=== PATIENT | female | born 1965 | race Caucasian/White ===

== ENCOUNTER 2025-01-06 21:27 | Observation (INO) | payer BC, SELFPAY ==
[2025-01-06 21:28] VITALS: BMI 31.1
[2025-01-06 21:37] VITALS: BP 157/96; PULSE 58; RESP 20; TEMP 36.4; O2SAT 100
--- NOTE | 2025-01-06 21:43 | EKG_ITS ---
[facility] Test Date: 2025-01-06 Pat Name: ESME HICKS Department: Room: - Gender: Female Medical Assistant Secretary: : 1965 Requested By: Jasson Lambert Order Number: [id number] Reading MD: Jasson Lambert Measurements Intervals Burt Rate: 53 P: 46 WV: 166 QRS: 57 QRSD: 96 T: 51 QT: 430 QTc: 404 Interpretive Statements SINUS BRADYCARDIA LOW QRS VOLTAGE IN PRECORDIAL LEADS [QRS DEFLECTION < 1.0 mV IN CHEST LEADS] No previous ECG available for comparison /store/S0/[id number]/ecg/[id number].pdf
[2025-01-06] MEDS: SODIUM CHLORIDE 0.9% 1000 ML 1,000 ML 999 ML IV (21:59)
[2025-01-06 22:14] LABS: Basophils # (Auto) 0.0 Thou/mm3 (0.0-0.2); Basophils % (Auto) 1 % (0-2.5); Eosinophils # (Auto) 0.0 Thou/mm3 (0.0-0.5); Eosinophils % (Auto) 0 % (0-10); Hematocrit 33.5 % (36.0-46.0); Hemoglobin 11.5 g/dL (12.0-16.0); Immature Granulocytes Auto 0.01 Thou/mm3 (0.00-0.00); Lymphocytes # (Auto) 1.2 Thou/mm3 (1.0-4.8); Lymphocytes % (Auto) 17 % (10-50); Mean Corpuscular HGB Conc 34.3 g/dl (31.0-37.0); Mean Corpuscular Hemoglobin 29.6 pg (25.0-35.0); Mean Corpuscular Volume 86 fL (80-100); Monocytes # (Auto) 0.2 Thou/mm3 (0.0-0.8); Monocytes % (Auto) 3 % (0-12); Neutrophils # (Auto) 5.5 Thou/mm3 (1.8-7.7); Neutrophils % (Auto) 79 % (37-80); Nucleated Red Blood Cell # 0.00 Thou/mm3 (0.00-0.00); Nucleated Red Blood Cell % 0 /100 WBC (0); Platelet Count 248 Thou/mm3 (140-440); RDW Standard Deviation 41.2 fL (36.4-46.3); Red Blood Count 3.89 Miln/mm3 (4.00-5.20); White Blood Count 7.0 Thou/mm3 (3.6-11.0)
[2025-01-06 22:34] LABS: Alanine Aminotransferase 7 U/L (10-49); Albumin, Serum 4.1 gm/dL (3.5-5.0); Albumin/Globulin Ratio 1.5 (1.2-2.2); Alkaline Phosphatase 135 U/L (46-116); Anion Gap 7 (7-16); Aspartate Amino Transferase 16 U/L (0-34); BUN/Creatinine Ratio 11 Ratio (12-20); Bilirubin,Total 0.4 mg/dL (0.3-1.2); Blood Urea Nitrogen 11 mg/dL (9-23); Calcium 9.7 mg/dL (8.3-10.6); Calcium (Corrected) 9.7 mg/dL (8.5-10.1); Carbon Dioxide 25.2 mMol/L (20.0-31.0); Chloride 113 mMol/L (98-107); Creatinine (Component) 1.0 mg/dL (0.6-1.3); Estimated Creatinine Clearance 74.0 mL/min (>60); Globulin 2.7 gm/dL (2.3-3.5); Glucose 122 mg/dL (74-106); Magnesium 2.0 mg/dL (1.6-2.6); Osmolality,Calculated 289 (275-295); Potassium 4.6 mMol/L (3.4-5.1); Sodium 145 mMol/L (136-145); Total Protein 6.8 gm/dL (5.7-8.2); Troponin I < 0.020 ng/mL (0.0-0.045); eGFR > 60 See Note
--- NOTE | 2025-01-06 23:06 | PD.EDADULT ---
ED General RME/HPI General Chief complaint: Dizziness Stated complaint: DIZZY AND NAUSEA Time Seen by Provider: 01/06/25 21:31 Arrival date/time: 01/06/25 21:27 RME / HPI RME / HPI narrative: See MDM Related Data Home Medications ?Medication ?Instructions ?Recorded ?Confirmed aripiprazole 2 mg tablet 3 mg PO HS 01/07/25 01/07/25 aspirin 81 mg capsule 81 mg PO QDAY 01/07/25 01/07/25 baclofen 10 mg tablet 10 mg PO TID 01/07/25 01/07/25 clonazepam 0.5 mg tablet 0.5 mg PO HS 01/07/25 01/07/25 desipramine 25 mg tablet 100 mg PO HS 01/07/25 01/07/25 famotidine 40 mg tablet 40 mg PO DAILY 01/07/25 01/07/25 lansoprazole 30 mg capsule,delayed 30 mg PO BID 01/07/25 01/07/25 release liothyronine 5 mcg tablet 30 mcg PO QAM PRN thyroid 01/07/25 01/07/25 mirtazapine 45 mg tablet 45 mg PO HS 01/07/25 01/07/25 prazosin 2 mg capsule 3 mg PO HS 01/07/25 01/07/25 Allergies Allergy/AdvReac Type Severity Reaction Status Date / Time codeine Allergy Verified 01/06/25 21:30 latex Allergy Verified 01/06/25 21:30 Penicillins Allergy Verified 01/06/25 21:30 Review of Systems Review of Systems Systems Reviewed: All systems reviewed, normal except as documented Course Quality Measures none Orders Category Date Time Status Bedside Blood Glucose NOW Care 01/07/25 04:10 Active Bedside COVID-19 Antigen Test NOW Care 01/06/25 21:43 Active Bedside Influenza A&B Antigen Test NOW Care 01/06/25 21:44 Completed COVID-19 Screening Questionnaire NOW Care 01/07/25 05:50 Active Car Jockey NOW Care 01/07/25 04:10 Active Continuous Pulse Oximetry NOW Care 01/07/25 04:10 Completed Decision to Admit X1 Care 01/07/25 05:50 Completed EKG (ED ONLY) *Do not use* NOW Care 01/06/25 21:43 Completed EKG (ED ONLY) *Do not use* NOW Care 01/07/25 04:10 Completed In and Out Catheter NEEDED Care 01/07/25 04:10 Active Insert IV NOW Care 01/07/25 04:10 Active MRI Screening NOW Care 01/07/25 04:47 Active NIH Stroke Scale now Care 01/07/25 04:10 Active Nurse Swallow Screen x1 Care 01/07/25 04:10 Active Consult to Neurology / Tele-Neurology Routine Cons 01/07/25 04:[address] angio stroke protocol Stat Exams 01/07/25 04:[address] chest abdomen pelvis wo Stat Exams 01/07/25 02:[address] head/brain wo con Stat Exams 01/07/25 02:01 Completed EKG (ED Only) Stat Exams 01/06/25 21:43 Draft EKG (ED Only) Stat Exams 01/07/25 04:10 Ordered CBC Stat Lab 01/06/25 21:12 Completed CBC Stat Lab 01/07/25 04:21 Completed CMP [Comprehensive Metabolic Panel] Stat Lab 01/06/25 21:12 Completed Comprehensive Metabolic Panel Stat Lab 01/07/25 04:21 Completed Drug Screen,Urine Stat Lab 01/07/25 01:35 Completed HCG Titer if Positive Stat Lab 01/07/25 04:21 Completed Magnesium Stat Lab 01/06/25 21:12 Completed Magnesium Stat Lab 01/07/25 04:21 Completed Partial Thromboplastin Time Stat Lab 01/07/25 04:21 Completed Prothrombin Time with INR Stat Lab 01/07/25 04:21 Completed Troponin I Stat Lab 01/06/25 21:12 Completed Troponin I Stat Lab 01/07/25 04:21 Completed UA [Urinalysis] Stat Lab 01/07/25 01:35 Completed Clopidogrel [Plavix] Med 01/07/25 04:47 Discontinued 300 mg PO X1 ONE Ondansetron Inj [Zofran Inj] Med 01/07/25 01:23 Active 4 mg IVP Q6HR PRN Sodium Chloride 0.9% 1000 ml [Ns] 1,000 ml Med 01/06/25 21:44 Discontinued IV 999 mls/hr Oxygen Delivery NOW RT 01/07/25 04:10 Active Vital Signs Vital signs: Vital Signs Temperature 97.5 F 01/06/25 21:37 Pulse Rate 58 L 01/06/25 21:37 Respiratory Rate 20 01/06/25 21:37 Blood Pressure 157/96 H 01/06/25 21:37 Pulse Oximetry (%) 100 01/06/25 21:37 Oxygen Delivery Method Room Air 01/06/25 21:37 Discharge Plan Plan Patient Disposition: Admit Acute Care w/in Hospital Problem List Clinical Impression: Cerebrovascular accident MDM Narrative MDM hospital course: 59 y/o F with pMHx of hypothyroidism, esophageal cancer (2007), GERD, major depressive disorder, anxiety, 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 She endorses that there were multiple instances where she felt like she was in a pass out she is never had the symptoms before. She states she drinks at least a gallon of water every day. She also endorses some palpitations just before dry heaving. 2313: Labs ordered, CT abdomen pelvis ordered, CT head ordered, IV fluids administered 0409: Stroke alert called. CT head shows Decreased cortical differentiation in the right occipital lobe, possibly artifactual. If acute infarct in the territory of the right ICT SECURITY SPECIALIST is clinically suspected, correlation with MRI and/or CTA is recommended, No evidence of intracranial hemorrhage, mass effect or midline shift, Mild volume loss. CTA head/neck came back negative Hospitalist team to admit Clinical Information Provided by patient Medical Records Reviewed [facility] Chronic Illness/Social Conditions which may negatively complicate care or outcome(s)-explain: None or not applicable Lab Interpretation Labs: interpreted by ct Lab(s) interpretation(s): normocytic anemia, cmp unremarkable, UA and UTox negative Imaging Radiology reports / interpretation(s): see radiology report Medication Administration(s) Medication Administration History Acetaminophen (Acetaminophen 325 Mg Tablet) 650 mg PO Q6H PRN PRN Reason: Fever >100.4 Stop: 02/06/25 07:27 Acetaminophen (Acetaminophen 325 Mg Tablet) 650 mg PO Q6H PRN PRN Reason: PAIN SCALE 1-3 (mild Stop: 02/06/25 07:32 Aripiprazole (Aripiprazole 5 Mg Tablet) 2.5 mg PO QDAY [facility] Stop: 02/06/25 13:29 Last Admin: 01/07/25 15:20 Dose: 2.5 mg Documented By: ER Aspirin (Aspirin Ec 81 Mg Tabec) 81 mg PO QDAY [facility] Stop: 02/06/25 08:59 Last Admin: 01/07/25 13:05 Dose: 81 mg Documented By: ER Bupropion HCl (Bupropion Hcl Xl 150 Mg Tabcr) 300 mg PO QDAY [facility] Stop: 02/06/25 08:59 Last Admin: 01/07/25 15:15 Dose: 300 mg Documented By: ER Clonazepam (Clonazepam 0.5 Mg Tablet) 0.25 mg PO QDAY [facility] Stop: 01/12/25 08:59 Last Admin: 01/07/25 13:12 Dose: 0.25 mg Documented By: ER Clopidogrel Bisulfate (Clopidogrel Bisulfate 75 Mg Tablet) 75 mg PO QDAY [facility] Stop: 02/06/25 08:59 Last Admin: 01/07/25 13:05 Dose: 75 mg Documented By: ER Famotidine (Famotidine 20 Mg Tablet) 40 mg PO DAILY [facility] Stop: 02/07/25 08:59 Heparin Sodium (Porcine) (Heparin Sod Inj 5000 Unit/Ml Vial) 5,000 unit SC Q8HR [facility] Stop: 01/21/25 07:44 Last Admin: 01/07/25 15:16 Dose: Not Given Documented By: ER Non-Admin Reason: Duplicate Medication on eMAR Admin: 01/07/25 13:05 Dose: 5,000 unit Documented By: ER Co-signed By: AIMEE Hydralazine HCl (Hydralazine Inj 20 Mg/Ml Vial) 10 mg IVP Q6HR PRN PRN Reason: Give if SBP >220 and DBP>120 Stop: 02/06/25 07:38 Lactated Ringer's (Lactated Ringers) 1,000 mls @ 75 mls/hr IV .[id number] [facility] Stop: 02/06/25 07:29 Last Admin: 01/07/25 13:05 Dose: 75 mls/hr Documented By: ER Liothyronine Sodium (Liothyronine Sod 5 Mcg Tablet) 30 mcg PO QDAY [facility] Stop: 02/06/25 13:14 Last Admin: 01/07/25 15:15 Dose: 30 mcg Documented By: ER Meclizine HCl (Meclizine Hcl 25 Mg Tablet) 25 mg PO TID PRN PRN Reason: DIZZINESS Stop: 02/06/25 07:38 Ondansetron HCl (Ondansetron Inj 2 Mg/Ml Inj 2 Ml) 4 mg IVP Q6HR PRN; Protocol PRN Reason: NAUSEA OR VOMITING Stop: 02/06/25 01:22 Last Admin: 01/07/25 01:44 Dose: 4 mg Documented By: VIVEK Pantoprazole Sodium (Pantoprazole 40 Mg Tablet) 40 mg PO Q12HR JAYLEN Stop: 02/06/25 08:59 Last Admin: 01/07/25 13:05 Dose: 40 mg Documented By: ER Sennosides (Senna Tablet) 1 tab PO QDAY PRN; Protocol PRN Reason: constipation Stop: 02/06/25 07:32 Discontinued Medications Aripiprazole (Aripiprazole 2 Mg Tablet (Non-Form)) 3 mg PO QDAY JAYLEN Stop: 02/06/25 08:59 Aripiprazole (Aripiprazole 5 Mg Tablet) 2.5 mg PO QDAY JAYLEN Stop: 02/06/25 08:59 Last Admin: 01/07/25 14:33 Dose: Not Given Documented By: ER Non-Admin Reason: Discontinued Clopidogrel Bisulfate (Clopidogrel Bisulfate 75 Mg Tablet) 300 mg PO X1 ONE Stop: 01/07/25 04:48 Last Admin: 01/07/25 05:14 Dose: 300 mg Documented By: VIVEK Famotidine (Famotidine 20 Mg Tablet) 20 mg PO DAILY JAYLEN Stop: 02/06/25 08:59 Last Admin: 01/07/25 13:11 Dose: 20 mg Documented By: ER Sodium Chloride (Ns) 1,000 mls @ 999 mls/hr IV .Q1H1M ONE Stop: 01/06/25 22:44 Last Infusion: 01/06/25 23:06 Dose: Infused Documented By: Admin: 01/06/25 21:59 Dose: 999 mls/hr Documented By: VIVEK Liothyronine Sodium (Liothyronine Sod 5 Mcg Tablet) 2.5 mcg PO QDAY JAYLEN Stop: 02/06/25 08:59 Last Admin: 01/07/25 13:16 Dose: Not Given Documented By: ER Non-Admin Reason: Discontinued see above Diagnosis Differential diagnosis: Stroke, vertigo, BPPH Dispositon Disposition: Admit
[2025-01-06 23:09] VITALS: BP 133/82; PULSE 61; RESP 18; TEMP 36.6; O2SAT 99
[2025-01-07] VITALS (10 sets, daily range): BP systolic 121–153; BP diastolic 83–99; PULSE 58–81; RESP 17–98; TEMP 36.1–36.9; O2SAT 96–100
--- NOTE | 2025-01-07 | XR_ITS ---
Examinations: MRI Brain without intravenous contrast. MRI brain with intravenous contrast MRA brain with intravenous contrast. MRA brain without intravenous contrast MRA neck with intravenous contrast Date and time of exam: Thousand 25, 0842 hrs. Indications: Onset dizziness nausea vomiting diaphoresis today Technique: Multiple axial and sagittal images of the brain have been obtained Siemens high-resolution 1.5 Umu short bore scanner is utilized. Sagittal sections, T1-weighted, TR 500, TE 14 Axial sections proton density and T2-weighted, TR 3,000, TE 34, TR 3,000, TE 91 Inversion recovery axial images, TR 9,260, TE 111, TI 2,500 Diffusion weighted images, axial sections, TR 4,800, TE 128, B value 1,000 Axial sections, ADC map, TR 4,800, TE 128. Contrast images have been obtained post intravenous 19 cc Gadolinium. T1-weighted axial and coronal images post contrast have been obtained. Angiographic images of neck and brain are obtained pre and post contrast. 3-D post processing performed, including brain, extracranial neck arterial maximum intensity projections Findings: Sellaturcica is not enlarged. The optic chiasm and infundibular stalk are not remarkable. Prepontine and interpeduncular cisterns are not enlarged. No localized enlargement of the medulla or janina. Fourth ventricle and cerebellar tonsils normal in position. Subacute hemorrhage is not seen. Fourth ventricle is midline. Mass in the cerebellopontine angle region is not evident. 7th and 8th nerve complexes exhibits symmetry. Globes are symmetrical with no retro-orbital mass. Increased white matter signal moderate Diffusion-weighted images demonstrateno focus of restricted diffusion. Mass-effect upon the ventricular system is not identified. Abnormal contrast enhancement is not seen. MRA brain carotid images no carotid stenoses, no cerebral large vessel arterial occlusions Impression: Negative for acute hemorrhage, mass effect or midline shift No acute infarct Moderate chronic microvascular white matter change No carotid stenoses No cerebral large vessel arterial occlusions
[2025-01-07] MEDS: ONDANSETRON INJ 2 MG/ML INJ 2 ML 4 MG IVP ×2 (01:44→20:22)
[2025-01-07 01:57] LABS: Collection Type, Urine Clean Catch
[2025-01-07 02:01] LABS: Bilirubin,Urine Negative (Negative); Blood,Urine Negative (Negative); Clarity,Urine Turbid (Clear/Hazy); Color,Urine Yellow (Lt Yel-Yel); Glucose, Urine Negative (Negative); Ketones,Urine Negative (Negative); Leukocyte Esterase,Urine Negative (Negative); Nitrite,Urine Negative (Negative); PH,Urine 5.5 (5.0-7.0); Protein,Urine Trace (Neg - Trace); RBC,Urine 2 /hpf (0-3); Specific Gravity,Urine 1.021 (1.001-1.035); Squamous Epithelial Cell,Urine 14 /hpf (0-5); Urobilinogen,Urine Negative mg/dL (0.0-1.0); WBC,Urine 3 /hpf (0-5)
--- NOTE | 2025-01-07 02:01 | XR_ITS ---
Examination: CT chest, without intravenous contrast. CT abdomen, without intravenous contrast. CT pelvis, without intravenous contrast. 2-D sagittal and coronal reconstructions. 3-D reconstructions. Date and time of exam:January 07, 2025, 0247 hours INDICATIONS: Dizziness shortness of breath chest and abdominal pain today CTDI vol (mgy) 16 DLP (MGycm)1174 Technique: Multiple CT images, 3.0 mm slice thickness, obtained chest, abdomen, pelvis, with the high-resolution 64 slice scanner.. Sagittal and coronal 2-D reconstructions are obtained. 3-D reconstructions Low dose protocols were performed. One or more of the following dose reduction techniques were used; automated exposure control, adjustment of the mA and/or KV according to patient size, use of iterative reconstruction technique. Findings: No thoracic aortic aneurysmal dilatation Pulmonary artery segments are not enlarged. No mediastinal lymphadenopathy. Minor atelectasis in the right lower lobe, no pneumonia Gastric sutures No focal liver or splenic lesion Fatty replacement throughout the liver Absent gallbladder No renal or ureteral calculi, no hydronephrosis Aorta normal size No bowel obstruction Normal appendix Atrophic uterus Urinary bladder is intact Advanced disc narrowing L4-L5 IMPRESSION: No acute process in the chest abdomen or pelvis
--- NOTE | 2025-01-07 02:01 | XR_ITS ---
Examination: CT brain head without contrast. 2-D sagittal coronal reconstructions Date and time of exam:January 07, 2025, 0243 hours INDICATIONS: Onset dizziness today CTDI: vol (mGy):48. DLP: (mGycm):1111. Technique: Multiple CT axial sections of the brain have been obtained, 5 mm slice thickness. Contrast has not been administered. 2-D sagittal, coronal reconstructions have been obtained Low dose protocols were performed. One or more of the following dose reduction techniques were used; automated exposure control, adjustment of the mA and/or KV according to patient size, use of iterative reconstruction technique. Findings: Decreased wedge-shaped density in the right occipital lobe, axial image 24 Ventricles are not enlarged No acute hemorrhage Cranial vault intact IMPRESSION: Decreased wedge-shaped density in the right occipital lobe, follow-up brain MRI would best assess for acute ischemic change
[2025-01-07 02:07] LABS: Amphetamine/Methamp Scrn,U Negative (Negative); Barbiturate Screen,Urine Negative (Negative); Benzodiazepines Screen,Urine Negative (Negative); Benzoylecgonine Screen, Ur Negative (Negative); Fentanyl Screen,Urine Negative (Negative); Opiate Screen,Urine Negative (Negative); THC Screen,Urine Negative (Negative)
--- NOTE | 2025-01-07 02:48 | PC.NURSE ---
ERIN MYRICK [phone]
--- NOTE | 2025-01-07 03:42 | PRELIM_ITS ---
CT scan of the head without intravenous contrast (axial sections with sagittal and coronal reformats) January 07, 2025 at 0242 hours Clinical History: Dizziness. Comparison: None. Findings: Decreased cortical differentiation in the right occipital lobe, possibly artifactual. There is no evidence of intracranial hemorrhage, mass effect or midline shift. There is mild volume loss. The calvarium is unremarkable. The mastoid air cells and the visualized paranasal sinuses are clear. Impression: 1. Decreased cortical differentiation in the right occipital lobe, possibly artifactual. If acute infarct in the territory of the right ABSTRACTER is clinically suspected, correlation with MRI and/or CTA is recommended. 2. No evidence of intracranial hemorrhage, mass effect or midline shift. 3. Mild volume loss. Report Electronically Signed By: Edwin Valadez 01/07/2025 3:42:26 AM [EST]
--- NOTE | 2025-01-07 04:10 | XR_ITS ---
Examination: CTA carotids with intravenous contrast CTA brain, head with intravenous contrast. 2-D sagittal, coronal reconstructions. 3-D reconstructions. Exam date and time: January 07, 2025, 0442 hours INDICATIONS: Stroke protocol, onset dizziness altered mental status today CTDI: vol (mGy) 46 DLP: (mGycm) 493 Technique: Multiple CTA axial brain, head carotid images post intravenous contrast injection 95 cc, Isovue-[id number]. 2-D sagittal, coronal reconstructions. 3-D reconstructions, 3-D post processing including vascular maximum intensity projection images. Low dose protocols were performed. One or more of the following dose reduction techniques were used; automated exposure control, adjustment of the mA and/or KV according to patient size, use of iterative reconstruction technique. Findings: No significant common carotid carotid bifurcation or internal carotid artery stenoses. Dominant right vertebral artery with no critical stenoses Intracranial vertebral arteries, basilar artery and posterior cerebral branches fill with no large vessel occlusions Middle cerebral anterior cerebral arteries also demonstrate no large vessel occlusions IMPRESSION: No significant neck arterial stenoses No cerebral large vessel arterial occlusions Consider brain MRI follow up stroke protocol
--- NOTE | 2025-01-07 04:48 | ESCONSULT_ITS ---
Tele Neuro Consultation Consultation Date 01/07/25 Most Recent Vital Signs Last Vital Signs Temp 97.8 F 01/06/25 23:09 Pulse 59 L 01/07/25 04:20 Resp 18 01/07/25 04:20 BP 153/95 H 01/07/25 04:20 Pulse Ox 100 01/07/25 04:20 O2 Del Method Room Air 01/07/25 04:20 Consultation Narrative [facility] Patient Name:???Shaniqua Cosby Date of :???1965 Identification Number:??? Date of Service:???01/07/2025 04:09:33 Diagnosis:?R42 - Dizziness/ Vertigo/ Giddiness Impression: ?Acute onset of dizziness and nausea/vomiting with diaphoresis. Neurological exam is non-localizing at this time, however head CT shows possible mild effacement of mccarthy-white differentiation in the right occipital lobe, unclear whether this represents early ischemia versus artifact. Differential diagnosis includes posterior circulation ischemia, peripheral vertigo, cardiac etiology. She is outside IV thrombolysis treatment time window. ? ?Recommendations: ?- CTA head/neck pending ?- MRI brain with and without contrast (contrast recommended due to remote malignancy history) ?- Permissive HTN pending MRI results ?- Dual antiplatelet therapy as below. As symptoms have been present for several hours, if MRI brain is negative for acute ischemia then the clopidogrel can be stopped and she can continue with aspirin monotherapy. Our recommendations are outlined below. Recommendations: ? Stroke/Telemetry Floor ? Neuro Checks (Q2) ? Bedside Swallow Eval ? DVT Prophylaxis ? IV Fluids, Normal Saline ? Head of Bed 30 Degrees ? Euglycemia and Avoid Hyperthermia (PRN Acetaminophen) ? Bolus with Clopidogrel 300 mg bolus x1 and initiate dual antiplatelet therapy with Aspirin 81 mg daily and Clopidogrel 75 mg daily ? Antihypertensives PRN if Blood pressure is greater than 220/120 or there is a concern for End organ damage/contraindications for permissive HTN. If blood pressure is greater than 220/120 give labetalol PO or IV or Vasotec IV with a goal of 15% reduction in BP during the first 24 hours. Sign Out: ? Discussed with Emergency Department Provider Advanced Imaging: Advanced imaging has been ordered. Results pending. Metrics: Last Known Well: 01/06/2025 19:15:00 Dispatch Time: 01/07/2025 04:09:33 Arrival Time: 01/06/2025 21:27:00 Initial Response Time: 01/07/2025 04:15:03Symptoms: dizziness, nausea. Initial patient interaction: 01/07/2025 04:15:41 NIHSS Assessment Completed: 01/07/2025 04:24:00Patient is not a candidate for Thrombolytic. Thrombolytic Medical Decision: 01/07/2025 04:24:30Patient was not deemed candidate for Thrombolytic because of following reasons: LKW outside 4.[address] Head: I personally reviewed all the CT images that were available to me and it showed: No acute hemorrhage. Possible subtle decrease in mccarthy-white differentiation in the right occipital lobe - early ischemia versus artifact Primary Provider Notified of Diagnostic Impression and Management Plan on: 01/07/2025 04:43:49 History of Present Illness:Patient is a 59 year old Female. Patient was brought by private transportation with symptoms of dizziness, nausea. Patient is a 59 year old woman presenting to the ED yesterday evening due to palpitations followed by acute onset of dizziness, nausea/vomiting, diaphoresis, and feeling as if she was going to pass out at 7:15pm. Her symptoms persisted for more than 2 hours, prompting her to come to the ED. She denies lateralized weakness/numbness, facial droop, language difficulty, vision loss, double vision. She reports mild visual blurring which may be worse on the left; blurring does not improve when she covers either eye. She denies slurred speech, but does feel like her voice is hoarse compared to normal. She denies recent illnesses. Past Medical History: ?There is no history of Hypertension ?There is no history of Diabetes Mellitus ?There is no history of Hyperlipidemia ?There is no history of Atrial Fibrillation ?There is no history of Coronary Artery Disease ?There is no history of Stroke ?There is no history of Seizures ?There is no history of Dementia/MCI Other PMH:? TIA 08/2024 with similar symptoms, esophageal cancer (2007), depression/anxiety, thyroid disease, GERD Medications: No Anticoagulant use? Antiplatelet use:?Yes?aspirin 81mg daily Reviewed EMR for current medications Other Medications Pertinent To Assessment Include: omeprazole, famotidine, Wellbutrin, Abilify, Klonopin, liothyronine Allergies:? Reviewed Description:?PCN, codeine, latex Social History: Smoking: No Alcohol Use: No Drug Use: No Family History: There is no family history of premature cerebrovascular disease pertinent to this consultation ROS : 14 Points Review of Systems was performed and was negative except mentioned in HPI. Past Surgical History: There Is No Surgical History Contributory To Today?s Visit Examination: BP(153/95),?Pulse(59),?Blood Glucose(122) 1A: Level of Consciousness - Alert; keenly responsive?+ 0 1B: Ask Month and Age - Both Questions Right?+ 0 1C: Blink Eyes & Squeeze Hands - Performs Both Tasks?+ 0 2: Test Horizontal Extraocular Movements - Normal?+ 0 3: Test Visual Hernandez - No Visual Loss?+ 0 4: Test Facial Palsy (Use Grimace if Obtunded) - Normal symmetry?+ 0 5A: Test Left Arm Motor Drift - No Drift for 10 Seconds?+ 0 5B: Test Right Arm Motor Drift - No Drift for 10 Seconds?+ 0 6A: Test Left Leg Motor Drift - No Drift for 5 Seconds?+ 0 6B: Test Right Leg Motor Drift - No Drift for 5 Seconds?+ 0 7: Test Limb Ataxia (FNF/Heel-Franco) - No Ataxia?+ 0 8: Test Sensation - Normal; No sensory loss?+ 0 9: Test Language/Aphasia - Normal; No aphasia?+ 0 10: Test Dysarthria - Normal?+ 0 11: Test Extinction/Inattention - No abnormality?+ 0 NIHSS Score:?0 NIHSS Free Text :?hoarse voice but no dysarthria Pre-Morbid Modified Brigette Scale:0 Points = No symptoms at all Spoke with :?Dr. Christopher Lambert This consult was conducted in real time using interactive audio and video technology. Patient was informed of the technology being used for this visit and agreed to proceed. Patient located in hospital and provider located at home/office setting. Patient is being evaluated for possible acute neurologic impairment and high probability of imminent or life-threatening deterioration. I spent total of 35 minutes providing care to this patient, including time for face to face visit via telemedicine, review of medical records, imaging studies and discussion of findings with providers, the patient and/or family. Dr Dee Medina [facility] For Inpatient follow-up with [facility] physician please call [facility] at . As we are not an outpatient service for any post hospital discharge needs please contact the hospital for assistance. If you have any questions for the [facility] physicians or need to reconsult for clinical or diagnostic changes please contact us via [facility] at .
[2025-01-07 04:58] LABS: Basophils # (Auto) 0.0 Thou/mm3 (0.0-0.2); Basophils % (Auto) 0 % (0-2.5); Eosinophils # (Auto) 0.0 Thou/mm3 (0.0-0.5); Eosinophils % (Auto) 0 % (0-10); Hematocrit 32.3 % (36.0-46.0); Hemoglobin 10.9 g/dL (12.0-16.0); Immature Granulocytes Auto 0.01 Thou/mm3 (0.00-0.00); Lymphocytes # (Auto) 2.9 Thou/mm3 (1.0-4.8); Lymphocytes % (Auto) 41 % (10-50); Mean Corpuscular HGB Conc 33.7 g/dl (31.0-37.0); Mean Corpuscular Hemoglobin 29.5 pg (25.0-35.0); Mean Corpuscular Volume 87 fL (80-100); Monocytes # (Auto) 0.4 Thou/mm3 (0.0-0.8); Monocytes % (Auto) 5 % (0-12); Neutrophils # (Auto) 3.8 Thou/mm3 (1.8-7.7); Neutrophils % (Auto) 54 % (37-80); Nucleated Red Blood Cell # 0.00 Thou/mm3 (0.00-0.00); Nucleated Red Blood Cell % 0 /100 WBC (0); Platelet Count 252 Thou/mm3 (140-440); RDW Standard Deviation 41.7 fL (36.4-46.3); Red Blood Count 3.70 Miln/mm3 (4.00-5.20); White Blood Count 7.1 Thou/mm3 (3.6-11.0)
[2025-01-07] MEDS: CLOPIDOGREL BISULFATE 75 MG TABLET 300 MG PO (05:14)
--- NOTE | 2025-01-07 05:17 | PRELIM_ITS ---
CT scan of the chest, abdomen and pelvis without intravenous contrast (axial sections with sagittal and coronal reformats) January 07, 2025 0245 hours Clinical History: dizziness Comparison: No prior study is available for comparison. Findings: Streaky atelectasis is seen in the lower lobes. The lungs are otherwise clear. There is no pleural effusion or pneumothorax. The aorta is unremarkable on this noncontrast study. No evidence of mediastinal mass or lymphadenopathy. There is no pericardial effusion. The gallbladder is surgically absent. There is fatty replacement of the pancreas. The liver, spleen, adrenals and kidneys are unremarkable on this noncontrast study. Changes of gastric bypass surgery are noted. No evidence of bowel obstruction. Fluid filled non dilated small bowel loops are seen in the pelvis, non specific. The appendix is within normal limits. The urinary bladder is incompletely distended. The uterus and adnexa are unremarkable. There is no free fluid or free air. Calcific densities are seen in the pelvis, likely representing phleboliths. Mild degenerative changes are identified in the spine. There are postoperative changes in the anterior abdominal wall. Impression: No evidence of acute intrathoracic, intraabdominal or pelvic pathology on this noncontrast study. Other findings as described above. Report Electronically Signed By: Dominguez Petty 01/07/2025 5:16:35 AM [EST]
[2025-01-07 05:28] LABS: INR 1.0 (0.9-1.3); Partial Thromboplastin Time 26.2 Seconds (22.0-36.0); Prothrombin Time 11.4 Seconds (9.0-12.2)
[2025-01-07 05:30] LABS: Alanine Aminotransferase 10 U/L (10-49); Albumin, Serum 3.7 gm/dL (3.5-5.0); Albumin/Globulin Ratio 1.5 (1.2-2.2); Alkaline Phosphatase 119 U/L (46-116); Anion Gap 11 (7-16); Aspartate Amino Transferase 14 U/L (0-34); BUN/Creatinine Ratio 9 Ratio (12-20); Bilirubin,Total 0.4 mg/dL (0.3-1.2); Blood Urea Nitrogen 8 mg/dL (9-23); Calcium 8.8 mg/dL (8.3-10.6); Calcium (Corrected) 9.0 mg/dL (8.5-10.1); Carbon Dioxide 25.4 mMol/L (20.0-31.0); Chloride 112 mMol/L (98-107); Creatinine (Component) 0.9 mg/dL (0.6-1.3); Estimated Creatinine Clearance 82.2 mL/min (>60); Globulin 2.5 gm/dL (2.3-3.5); Glucose 93 mg/dL (74-106); Magnesium 1.8 mg/dL (1.6-2.6); Osmolality,Calculated 292 (275-295); Potassium 4.4 mMol/L (3.4-5.1); Sodium 148 mMol/L (136-145); Total Protein 6.2 gm/dL (5.7-8.2); Troponin I < 0.020 ng/mL (0.0-0.045); eGFR > 60 See Note
[2025-01-07 05:59] LABS: HCG Titer if Positive Negative
--- NOTE | 2025-01-07 06:32 | PRELIM_ITS ---
CT angiogram of the head and neck with intravenous contrast (axial sections with sagittal and coronal reformats) January 07, 2025 0442 hours Clinical History: Focal neuro deficit, stroke suspected Correlated with the prior CT study dated 01/07/2025 Findings: Head: The internal carotid, middle and anterior cerebral arteries are patent bilaterally. origin of the left posterior cerebral artery is seen. The intracranial vertebral arteries are patent. The vertebrobasilar junction, basilar and posterior cerebral arteries are patent. No evidence of large vessel occlusion, critical stenosis or aneurysm. Neck: The aortic arch to the extent visualized as well as the origins of the right brachiocephalic, left common carotid, and left subclavian arteries are patent. The common carotid arteries, carotid bulbs, and internal and external carotid arteries are patent. The origins of the vertebral arteries are unremarkable. The right vertebral artery is dominant. No evidence of vascular occlusion, critical stenosis, dissection or aneurysm. The soft tissues of the neck are unremarkable. Degenerative changes are identified in the spine. Impression: Head: No evidence of large vessel occlusion, critical stenosis or aneurysm. Neck: No evidence of vascular occlusion, critical stenosis, dissection or aneurysm. Report Electronically Signed By: Dominguez Petty 01/07/2025 6:32:04 AM [EST]
--- NOTE | 2025-01-07 06:56 | PC.NURSE ---
Okayed to eat per MD Olvera
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
[2025-01-07 11:45] LABS: Troponin I < 0.020 ng/mL (0.0-0.045)
[2025-01-07] MEDS: PANTOPRAZOLE 40 MG TABLET PO ×2 (13:05→20:22)
[2025-01-07] MEDS: RINGERS LACTATED 1000 ML 1,000 ML 75 ML IV ×2 (13:05→23:58)
[2025-01-07] MEDS: HEPARIN SOD INJ 5000 UNIT/ML VIAL SC ×2 (13:05→21:22)
[2025-01-07] MEDS: ASPIRIN EC 81 MG TABEC PO (13:05)
[2025-01-07] MEDS: CLOPIDOGREL BISULFATE 75 MG TABLET PO (13:05)
[2025-01-07] MEDS: FAMOTIDINE 20 MG TABLET PO (13:11)
[2025-01-07] MEDS: LIOTHYRONINE SOD 5 mCg TABLET 30 MCG PO (15:15)
[2025-01-07] MEDS: BuPROPion HCL XL 150 MG TABCR 300 MG PO (15:15)
[2025-01-07] MEDS: DiphenhydrAMINE ELIX 25 MG/10 ML UDC 50 MG PO (22:06)
--- NOTE | 2025-01-07 22:10 | PC.NURSE ---
SPOKE WITH DR. YULISSA DUNN REGARDING MIRTAZPINE AND PROZOSIN HOME MEDCATION. PT WOULD LIKE TO CONTINUE IN HOPTAL. STATES THAT HE WILL SEE THE PT ON THE FLOOR BEFORE TRANSFERRING TO MED/SURG FLOOR.
[2025-01-07] MEDS: MIRTAZAPINE 15 MG TABLET 45 MG PO (23:58)
[2025-01-08] VITALS (9 sets, daily range): BP systolic 119–144; BP diastolic 79–99; PULSE 68–88; RESP 13–94; TEMP 36.1–36.6; O2SAT 94–98
--- NOTE | 2025-01-08 00:06 | PD.VPROG1 ---
Telemedicine visit statement This visit was conducted with the use of phone was obtained on 01/07/25 . Documentation for date of: 01/07/25 Subjective Subjective Interval history: Patient is in medsurg, c/o being restless and not able to sleep despite Benadryl, remeron 45 mg tonight. She is wanting to take Prazosin to help with night terrors which she routinely takes. Virtual exam Vital Signs Temp Pulse Resp BP Pulse Ox O2 Del Method 97.0 F 67 23 H 133/83 H 97 Room Air 01/07/25 20:00 01/07/25 20:00 01/07/25 20:00 01/07/25 20:00 01/07/25 20:00 01/07/25 20:00 Objective Labs 01/07/25 04:21 01/07/25 04:21 Labs: Laboratory Results - last 24 hr 01/07/25 01/07/25 01/07/25 01:35 04:21 11:10 WBC 7.1 RBC 3.70 L Hgb 10.9 L Hct 32.3 L MCV 87 MCH 29.5 MCHC 33.7 RDW Std Deviation 41.7 Plt Count 252 Neut % (Auto) 54 Lymph % (Auto) 41 [place] % (Auto) 5 Eos % (Auto) 0 Baso % (Auto) 0 Neut # (Auto) 3.8 Lymph # (Auto) 2.9 [place] # (Auto) 0.4 Eos # (Auto) 0.0 Baso # (Auto) 0.0 Immature Gran # (Auto) 0.01 H Absolute Nucleated RBC 0.00 Immature Gran % 0 Nucleated RBC % 0 PT 11.4 INR 1.0 APTT 26.2 Sodium 148 H Potassium 4.4 Chloride 112 H Carbon Dioxide 25.4 Anion Gap 11 BUN 8 L Creatinine 0.9 Estim Creat Clear Calc 82.2 eGFR > 60 BUN/Creatinine Ratio 9 L Glucose 93 Calculated Osmolality 292 Calcium 8.8 Corrected Calcium 9.0 Magnesium 1.8 Total Bilirubin 0.4 AST 14 ALT 10 Alkaline Phosphatase 119 H Troponin I < 0.020 < 0.020 Total Protein 6.2 Albumin 3.7 Globulin 2.5 Albumin/Globulin Ratio 1.5 Ur Collection Type Clean Catch Urine Color Yellow Urine Clarity Turbid A Urine pH 5.5 Ur Specific [place] 1.021 Urine Protein Trace Urine Glucose (UA) Negative Urine Ketones Negative Urine Blood Negative Urine Nitrite Negative Urine Bilirubin Negative Urine Urobilinogen (Auto) Negative Ur Leukocyte Esterase Negative Urine RBC 2 Urine WBC 3 Ur Squamous Epith Cells 14 H Urine Bacteria None Urine Opiates Screen Negative Urine Fentanyl Screen Negative Ur Barbiturates Screen Negative U Amphetamin/Meth Scrn Negative U Benzodiazepines Scrn Negative U Cocaine Metab Screen Negative U Marijuana (THC) Screen Negative HCG (Qual) Negative Assessment & Plan Problem List (1) TIA (transient ischemic attack): Status: Acute Assessment and plan: resolved, no focal deficit or recurrences reported after admission. MRI brain: negative for acute infarction continue with ASA and statin. (2) Anxiety and depression: Status: Chronic Assessment and plan: Continue home meds. Hopefully she gets to rest tonight after Pharmacy is able to provide Prazosin.
[2025-01-08] MEDS: PRAZOSIN HCL 1 MG CAPSULE 3 MG PO (01:21)
[2025-01-08] MEDS: HEPARIN SOD INJ 5000 UNIT/ML VIAL SC (05:38)
[2025-01-08 05:52] LABS: Basophils # (Auto) 0.0 Thou/mm3 (0.0-0.2); Basophils % (Auto) 1 % (0-2.5); Eosinophils # (Auto) 0.1 Thou/mm3 (0.0-0.5); Eosinophils % (Auto) 1 % (0-10); Hematocrit 32.7 % (36.0-46.0); Hemoglobin 10.8 g/dL (12.0-16.0); Immature Granulocytes Auto 0.01 Thou/mm3 (0.00-0.00); Lymphocytes # (Auto) 3.1 Thou/mm3 (1.0-4.8); Lymphocytes % (Auto) 52 % (10-50); Mean Corpuscular HGB Conc 33.0 g/dl (31.0-37.0); Mean Corpuscular Hemoglobin 29.6 pg (25.0-35.0); Mean Corpuscular Volume 90 fL (80-100); Monocytes # (Auto) 0.3 Thou/mm3 (0.0-0.8); Monocytes % (Auto) 5 % (0-12); Neutrophils # (Auto) 2.4 Thou/mm3 (1.8-7.7); Neutrophils % (Auto) 41 % (37-80); Nucleated Red Blood Cell # 0.00 Thou/mm3 (0.00-0.00); Nucleated Red Blood Cell % 0 /100 WBC (0); Platelet Count 230 Thou/mm3 (140-440); RDW Standard Deviation 42.6 fL (36.4-46.3); Red Blood Count 3.65 Miln/mm3 (4.00-5.20); White Blood Count 5.9 Thou/mm3 (3.6-11.0)
[2025-01-08 06:03] LABS: INR 1.1 (0.9-1.3); Partial Thromboplastin Time 27.5 Seconds (22.0-36.0); Prothrombin Time 12.0 Seconds (9.0-12.2)
[2025-01-08 06:22] LABS: Alanine Aminotransferase 10 U/L (10-49); Albumin, Serum 3.4 gm/dL (3.5-5.0); Albumin/Globulin Ratio 1.5 (1.2-2.2); Alkaline Phosphatase 107 U/L (46-116); Anion Gap 10 (7-16); Aspartate Amino Transferase 15 U/L (0-34); BUN/Creatinine Ratio 8 Ratio (12-20); Bilirubin,Total 0.2 mg/dL (0.3-1.2); Blood Urea Nitrogen 8 mg/dL (9-23); Calcium 8.6 mg/dL (8.3-10.6); Calcium (Corrected) 9.1 mg/dL (8.5-10.1); Carbon Dioxide 27.0 mMol/L (20.0-31.0); Cardiac Risk Estimate 2.4 RATIO (3.7-5.6); Chloride 112 mMol/L (98-107); Cholesterol 130 mg/dL (132-200); Creatinine (Component) 1.0 mg/dL (0.6-1.3); Estimated Creatinine Clearance 74.5 mL/min (>60); Globulin 2.3 gm/dL (2.3-3.5); Glucose 90 mg/dL (74-106); HDL Cholesterol 54 mg/dL (40-60); LDL Cholesterol,Calculated 53 mg/dL (0-130); Magnesium 1.9 mg/dL (1.6-2.6); Osmolality,Calculated 294 (275-295); Phosphorous 4.5 mg/dL (2.4-5.1); Potassium 4.1 mMol/L (3.4-5.1); Sodium 149 mMol/L (136-145); Thyroid Stimulating Hormone 2.94 uIU/mL (0.55-4.78); Total Protein 5.7 gm/dL (5.7-8.2); Triglycerides 116 mg/dL (30-150); eGFR > 60 See Note
[2025-01-08] MEDS: PANTOPRAZOLE 40 MG TABLET PO (09:47)
[2025-01-08] MEDS: CLOPIDOGREL BISULFATE 75 MG TABLET PO (09:47)
[2025-01-08] MEDS: FAMOTIDINE 20 MG TABLET 40 MG PO (09:47)
[2025-01-08] MEDS: ASPIRIN EC 81 MG TABEC PO (09:48)
[2025-01-08] MEDS: LIOTHYRONINE SOD 5 mCg TABLET 30 MCG PO (10:58)
[2025-01-08] MEDS: BuPROPion HCL XL 150 MG TABCR 300 MG PO (10:59)
--- NOTE | 2025-01-08 15:10 | ESDS_ITS ---
<Statement entered by Guerline Blanton DO - 01/09/25 09:00> I, Guerline Blanton DO, attest that I was physically present for the irvin portions of the service and evaluated the patient with the resident and I reviewed and discussed the case with the resident and agree with the resident's findings and plans of care as documented above Planned Discharge Date 01/08/25 DS: Providers Provider Date of admission: 01/07/25 07:28 Primary care physician: Pradeep Doan Admitting Provider: Guerline Blanton DO Attending Provider on Admission: Guerline Blanton DO Consults: 01/07/25 04:10 Consult to Neurology / Tele-Neurology Routine Comment: Consulting Provider: [facility] 01/07/25 07:44 Consult to Neurology / Tele-Neurology Routine Comment: Consulting Provider: Jono De Los Santos Attending Provider on DC: Guerline Blanton DO Discharging Provider: Michael Dong MD DS: Diagnosis Problem List Completed Was Problem List Reviewed/Reconciled?: Yes Hospital Course Hospital Course Hospital course: Ms. Cosby is a 59 yo woman with a history of TIA in 2023 (treated with TPA), of low t3 (on liothyronine sodium), well managed MDD, anxiety and PTSD, Lyme disease (on ivermectin q3wks), and remote history of esophogeal cancer 1997 who presented to the ED for dizziness and difficulty speaking. Neurology was consulted, patient mated for CVA workup. CT and MRI were negative for acute infarct, however patient continued to endorse nausea and dizziness, improved throughout hospital stay. Patient given aspirin and meclizine with moderate improvement in symptoms. Patient stable for discharge from neurology perspective. Patient medically clear and stable for discharge. Discharge plan: You have been discharged on the following medications: -aspirin 81mg daily -atorvastatin 80mg daily -meclezine 25mg as needed for dizziness up to 3 times daily Please continue all home meds as previously prescribed. Please follow up with your primnary care doctor within 7-10 days. Return to the ED if you develop new or worsening symptoms. Diagnoses: #Dizziness #Stroke r/o #Hx of TIA 2023 tx with TPA #Hypothyroidism #MDD #Anxiety #PTSD #GERD #Lyme Disease #Esophogeal Cancer s/p chemo, radiation, and yudith fundiplication and gastric surgery- REMOTE hx (1997) Plan of care discussed with attending Dr. Blanton. Michael Dong MD PGY?2 Status at Discharge Overall status at discharge: patient is progressing back to baseline Time Spent with Patient Time attestation: Total time spent providing and/or coordinating discharge services: Time spent: Greater than 30 minutes Exam Vital Signs Temp Pulse Resp BP Pulse Ox O2 Del Method 97.3 F 68 17 137/99 H 97 Room Air 01/08/25 12:01/08/25 12:01/08/25 12:01/08/25 12:01/08/25 12:01/08/25 12:00 Narrative Exam GENERAL: no acute distress, AAO x3, comfortable HEENT: Head AT/ NC. Mucous membranes moist. PERRL. CARDIOVASCULAR: RRR. Normal S1/S2, No m/r/g. No pitting edema of bilateral LEs.(pt wearing compression socks) RESPIRATORY: CTAB. No wheezing, rhonchi, crackles. GASTROINTESTINAL: Abdomen soft, non tender no palpable masses. Bowel sounds present MUSCULOSKELETAL:? No cyanosis or edema, no visible joint swelling. NEUROLOGICAL: CN II-XII grossly intact. No focal deficits. Sensation intact, symmetric. Motor: 5/5 on all extremities, Finger nose finger-negative, heel knee key-negative. PSYCHIATRIC: Awake and alert, not agitated, normal mood and affect. SKIN: No obvious rashes, no jaundice, normal turgor. Discharge Plan Plan Patient Disposition: HOME (Self Care) Patient condition on transfer: Stable Care Plan Goals: You have been discharged on the following medications: -aspirin 81mg daily -atorvastatin 80mg daily -meclezine 25mg as needed for dizziness up to 3 times daily Please continue all home meds as previously prescribed. Please follow up with your primary care doctor within 7-10 days. Return to the ED if you develop new or worsening symptoms. Prescriptions/Referrals Prescriptions/Med Rec: New meclizine 25 mg Tablet 25 mg PO TID MDD 3 tabs PRN (Reason: Dizziness) 30 Days Qty: 90 0RF Continued clonazepam 0.5 mg tablet 0.5 mg PO HS Patient Comments: TAKE 1 TABLET BY MOUTH EVERYDAY AT BEDTIME prazosin 2 mg capsule 3 mg PO HS Patient Comments: TAKE 1 CAPSULE BY MOUTH EVERYDAY AT BEDTIME aripiprazole 2 mg tablet 3 mg PO HS Patient Comments: TAKE 2 TABLETS ORALLY DAILY AT BEDTIME mirtazapine 45 mg tablet 45 mg PO HS Patient Comments: TAKE 1 TABLET BY MOUTH AT BEDTIME desipramine 25 mg tablet 100 mg PO HS lansoprazole 30 mg capsule,delayed release(DR/EC) 30 mg PO BID famotidine 40 mg tablet 40 mg PO DAILY Patient Comments: TAKE 1 TABLET BY MOUTH EVERY EVENING baclofen 10 mg tablet 10 mg PO TID aspirin 81 mg capsule 81 mg PO QDAY liothyronine 5 mcg tablet 30 mcg PO QAM PRN (Reason: thyroid) Referrals: Pradeep Doan [Primary Care Provider] - Patient/Caregiver Discharge Instructions Discharge Activity: activity as tolerated Education Materials: What Is a TIA?, Anatomy of the Brain, ED TIA: Transient Ischemic Attack Print Language: [place] Stand Alone Forms: Naida Award Info., Patient Portal Info Letter, Work/Release Restrictions Discharge Order Discharge Orders: Discharge (Routine); Ordered 01/08/25 Ordered By: Guerline Blanton Quality Discharge Quality Measures VTE prophylaxis
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
--- NOTE | 2025-01-09 | PD.NEUROPROG ---
Documentation for date of: 01/09/25 Subjective Subjective Interval history: Patient was seen in [facility] today. Continues to feel lightheaded and she is attributing to low heart rate and slightly high blood pressure which she never had. Denies any weakness or paresthesias in the extremities or in the face. Tolerating oral diet well and ambulating without support. Exam - Neurology Vital Signs Temp Pulse Resp BP Pulse Ox O2 Del Method 97.3 F 68 17 137/99 H 97 Room Air 01/08/25 12:01/08/25 12:01/08/25 12:01/08/25 12:01/08/25 12:00 01/08/25 12:00 Narrative Exam GENERAL APPEARANCE: Well hydrated, well-nourished in no acute distress. HEENT: Normocephalic, atraumatic, extraocular movements intact. Pupils: Equal reacting to light and accommodation NECK: Supple, no JVD or bruits. CARDIOVASULAR: Heart: S1, S2 heard, regular without S3-S4 or murmur no rubs or gallops. LUNGS/CHEST: Clear to auscultation bilaterally. No rails, rhonchi, or wheezing. Normal inspection. ABDOMEN: Soft, nontender, with normal bowel sounds. No pulsatile masses. No rebound, rigidity, or guarding. Normal inspection and palpation. EXTREMITIES: Normal inspection and palpation. No edema, clubbing or cyanosis. SKIN: Warm and dry without rashes. Normal inspection. MUSCULOSKELETAL: No cervical, thoracic, lumbar or midline bony tenderness. Normal inspection. NEURO: Alert, awake and oriented x3. Cranial nerves: II through XII grossly intact. Speech and language: Normal with no dysarthria or dysphasia. Motor system: Tone and bulk: Normal: Strength: 5 out of 5 in all 4 extremities; No pronator drift noted. Deep tendon reflexes: 2+ bilaterally symmetrical. Plantar reflex: Downgoing bilaterally. Sensory system: Intact to all modalities of sensation bilaterally. Coordination: Intact to otgzat-lolm-nszxc and cdjn-gxhd-ohzx test bilaterally. No ataxia, no dysmetria, or dysdiadochokinesia noted. No intention tremors noted. Gait: Normal. Toe, heel, tandem walk all are normal. Romberg: Negative. No signs of meningeal irritation noted. PSYCHIATRIC: Normal mood and affect. Objective Labs 01/08/25 05:07 01/08/25 05:07 Labs: Laboratory Results - last 24 hr 01/08/25 05:07 WBC 5.9 RBC 3.65 L Hgb 10.8 L Hct 32.7 L MCV 90 MCH 29.6 MCHC 33.0 RDW Std Deviation 42.6 Plt Count 230 Neut % (Auto) 41 Lymph % (Auto) 52 H [place] % (Auto) 5 Eos % (Auto) 1 Baso % (Auto) 1 Neut # (Auto) 2.4 Lymph # (Auto) 3.1 [place] # (Auto) 0.3 Eos # (Auto) 0.1 Baso # (Auto) 0.0 Immature Gran # (Auto) 0.01 H Absolute Nucleated RBC 0.00 Immature Gran % 0 Nucleated RBC % 0 PT 12.0 INR 1.1 APTT 27.5 Sodium 149 H Potassium 4.1 Chloride 112 H Carbon Dioxide 27.0 Anion Gap 10 BUN 8 L Creatinine 1.0 Estim Creat Clear Calc 74.5 eGFR > 60 BUN/Creatinine Ratio 8 L Glucose 90 Calculated Osmolality 294 Calcium 8.6 Corrected Calcium 9.1 Phosphorus 4.5 Magnesium 1.9 Total Bilirubin 0.2 L AST 15 ALT 10 Alkaline Phosphatase 107 Total Protein 5.7 Albumin 3.4 L Globulin 2.3 Albumin/Globulin Ratio 1.5 Triglycerides 116 Cholesterol 130 L LDL Cholesterol, Calc 53 HDL Cholesterol 54 Cholesterol/HDL Ratio 2.4 L TSH 2.94 Assessment & Plan Assessment and plan (1) TIA (transient ischemic attack): Status: Resolved Assessment and plan: Reassurance given to the patient regarding the negative workup including MRI brain. Continue with aspirin and statin Stable for discharge home Will see her back in 2 weeks (2) Anxiety and depression: Status: Chronic Assessment and plan: and PTSD Continue with home meds
== END 2025-01-08 13:24 | disposition home or self-care (01) ==
LOC: SERX 01-07 05:51 → SERHOLD 01-07 08:39 → S2NX 01-07 12:20 → S3SX 01-08 09:49 → S2NX 01-08 19:49 → SERHOLD 01-08 19:49
PROVIDERS: Admitting Provider Internal Medicine; Emergency Provider Student in an Organized Health Care Education/Training Program; Visit Provider Internal Medicine
DX: R42 Dizziness and giddiness (principal); K21.9 Gastro-esophageal reflux disease without esophagitis; F43.10 Post-traumatic stress disorder, unspecified; F41.9 Anxiety disorder, unspecified; F32.9 Major depressive disorder, single episode, unspecified; E03.9 Hypothyroidism, unspecified; Z85.01 Personal history of malignant neoplasm of esophagus; Z86.73 Personal history of transient ischemic attack (TIA), and cerebral infarction without residual deficits; Z90.89 Acquired absence of other organs; Z92.21 Personal history of antineoplastic chemotherapy; Z92.3 Personal history of irradiation; Z01.810 Encounter for preprocedural cardiovascular examination
CPT/HCPCS: 36415; 70450; 70496; 70498; 70553; 71250; 74176; 80053; 80061; 80307; 81001; 83735; 84100; 84443; 84484; 84703; 85025; 85610; 85730; 87400; 87811; 92610; 93005; 96361; 96372; 96374; 96376; 99285; A4649; G0378; J1644; J2405; J7030; J7120; Q9967; A9270

== ENCOUNTER 2025-01-13 15:02 | Outpatient (AMB) | payer BC, SELFPAY ==
[2025-01-13 15:17] VITALS: BP 132/92; PULSE 74; RESP 17; TEMP 36.7; O2SAT 97; BMI 30.7
--- NOTE | 2025-01-13 15:17 | PD.RESCLINIC ---
Vital Signs 01/13/25 15:17 Height 1.73 m Height Method Measured Weight 91.739 kg Weight Measurement Method Standing Scale BMI 30.7 BP 132/92 H Blood Pressure Source Automatic Cuff Blood Pressure Location Right Upper Arm Position Sitting Respiration 17 Pulse 74 Pulse Source Monitor Temp 98.1 F Temp Source Temporal Artery Scan Pulse Oximetry (%) 97 Oxygen Delivery Method Room Air Allergies/Meds Allergies & Medications Allergies codeine Allergy (Verified 01/13/25 15:18) latex Allergy (Verified 01/13/25 15:18) Penicillins Allergy (Verified 01/13/25 15:18) Medication Reconciliation aripiprazole 2 mg tablet 3 mg PO HS 01/07/25 [History Confirmed 01/13/25] aspirin 81 mg capsule 81 mg PO QDAY 01/07/25 [History Confirmed 01/13/25] baclofen 10 mg tablet 10 mg PO TID 01/07/25 [History Confirmed 01/13/25] clonazepam 0.5 mg tablet 0.5 mg PO HS 01/07/25 [History Confirmed 01/13/25] desipramine 25 mg tablet 100 mg PO HS 01/07/25 [History Confirmed 01/13/25] famotidine 40 mg tablet 40 mg PO DAILY 01/07/25 [History Confirmed 01/13/25] lansoprazole 30 mg capsule,delayed release 30 mg PO BID 01/07/25 [History Confirmed 01/13/25] liothyronine 5 mcg tablet 30 mcg PO QAM PRN thyroid 01/07/25 [History Confirmed 01/13/25] mirtazapine 45 mg tablet 45 mg PO HS 01/07/25 [History Confirmed 01/13/25] prazosin 2 mg capsule 3 mg PO HS 01/07/25 [History Confirmed 01/13/25] meclizine 25 mg tablet 25 mg PO TID PRN Dizziness 1 month #90 tabs 01/08/25 [Rx Confirmed 01/13/25] MD Intake Visit Data Collection New Patient or Established: Established Patient (seen at [facility] within 3 years) Reason for Visit:: F\U HOSPITAL Pain Present Currently: No Pain scale:: 0 Pain Scale Used: ChavarriaRaudel/[employer] Supervisor Required: No PCP or OBGYN visit in last 3 months: Yes Date of Last PCP or OBGYN visit: 01/08/25 Hx Now: No Do You Feel Safe at Home: Yes Authorities Contacted: N/A Smoking Status Smoking Status: Never smoker Immunization / Flu Flu Vaccine in the Last 12 Months: Yes Flu Vaccine Exclusion Criteria: Already Received Past Medical History Past Medical History NEUROLOGIC: Positive Transient Ischemic Attacks (TIA) CARDIAC: Negative Congestive Heart Failure RESPIRATORY: Negative Chronic Obstructive Pulmonary Disease (COPD) GENITOURINARY: Negative Renal Disease ENDOCRINE: Negative Diabetes Mellitus Type 1 or Diabetes Mellitus Type 2 PSYCHO/SOCIAL: Positive Depression and Anxiety OTHER HISTORY: Positive Cancer Surgical History SURGICAL: Positive Nose Surgery, Tonsillectomy, Abdominal Surgery (yudith fundiplication x2, ex lap, 2x ), Gastric Bypass Surgery and Bowel Surgery Social History SMOKING STATUS: Smoking status: Never smoker ALCOHOL: Alcohol Intake: Never HOUSING: Housing: House LIVES WITH: Lives With: Spouse Patient Portal Questionaires PHQ-9 PHQ-2 Over the last 2 weeks, how often have you been bothered by any of the following problems? 1. Little interest or pleasure in doing things: not at all 2. Feeling down, depressed, or hopeless: not at all Total score: 0 PHQ-9 3. Trouble falling or staying asleep, or sleeping too much: Not at all 4. Feeling tired or having little energy: Not at all 5. Poor appetite or overeating: Not at all 6. Feeling bad about yourself - or that you are a failure or have let yourself or your family down: Not at all 7. Trouble concentrating on things, such as reading the newspaper or watching television: Not at all 8. Moving or speaking so slowly that other people could have noticed? - Or the opposite - being so fidgety or restless that you have been moving around a lot more than usual: not at all 9. Thoughts that you would be better off or of hurting yourself in some way: Not at all Total score: 0 If you checked off any problems, how difficult have these problems made it for you to do your work, take care of things at home, or get along with other people?: not difficult at all Source: Developed by Drs. Anatoliy Valladares, Raegan Sorensen, Valeriano Alan and colleagues, with an educational mario alberto from [employer]. Depression screen completed yes Social History Living Situation History Housing: House Tobacco History Smoking Status: Never smoker Alcohol History Alcohol Intake: Never Domestic Abuse History Do You Feel Safe at Home: Yes Review of Systems Report any current symptoms Only answer those that you have currently: Past Medical History Past Medical History Have you ever been diagnosed with any of the following: Neurological Problems Transient Ischemic Attacks (TIA): Yes Cardiology Problems Congestive Heart Failure: No Respiratory Problems Chronic Obstructive Pulmonary Disease (COPD): No Genital/Urinary Problems Renal Disease: No Endocrine Problems Diabetes Mellitus Type 1: No Diabetes Mellitus Type 2: No Psychologic Problems Depression: Yes Anxiety: Yes Other Problems Cancer: Yes History of Present Illness HPI Narrative Patient is a 59 year old female with history fo TIA, Hypothyrodism, depression, PTSD, anxiety, history of lyme disease, and remote history of esophageal cancer. Patient is a hospital follow up after a recent discharge TIA stroke. 01/13/2025: Patient continues to experience dizziness described more as impending darkness. Patient stated lightedness and sense of darkness also accompained by diaphroesis. Denied chest pain or chest pressure. No syncope recently experienced. Meclezine has not helped. Denied seizure like activity. Denied hearing loss. Denied tinnitus. Patient's main concern muscle rigidity experienced bilaterally on joints and muscle spasms. Pateint aslo complaining of motor weakness with use. TIA diagnosis on January,. Several psychiatric medication. 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 -Patient follows Dr. Bauer -Behavioral health at [facility] Review of Systems Review of Systems Narrative Review of Systems: General appearance: NO weight change, NO fatigue, NO weakness, NO fever, NO chills, NO night sweats, No cough Skin: NO rash, NO itching, NO sores, NO moles HEENT: NO Trauma, NO nausea, NO vomiting, NO visual changes, NO blurry vision, NO double vision, NO tinnitus, NO vertigo, NO ear discharge, NO rhinorrhea, NO stuffiness, NO sneezing, NO allergy, NO epistaxis. NO Hoarseness, NO sore throat, NO swollen neck. Cardiac: NO Palpitations, NO dyspnea on exertion, NO orthopnea, NO paroxysmal nocturnal dyspnea, NO edema Respiratory: NO Shortness of Breath, NO Wheezing, NO Cough, NO Sputum, NO hemoptysis GI:NO appetite, NO nausea, NO vomiting, NO dysphagia, NO changes in bowel frequency, NO stool color, NO diarrhea, NO constipation, NO hemetemesis, NO hemorrhoids, NO melena, NO hematechezia, NO abdominal pain, NO jaundice Renal: NO frequency, NO hesitancy, NO urgency, NO hematuria, NO nocturia, NO incontinence MSK: NO muscle weakness, NO gout, NO arthritis, YES muscle stiffness Neuro: NO headaches, NO tremors, NO weakness, NO paralysis, NO seizures, NO loss of consciousness, NO numbness Hem: NO anemia, NO easy bruising/bleeding, NO petechiae, NO purpura Endo: NO heat/cold intolerance, NO excessive sweating, NO polyuria, NO polydipsia, NO polyphagia, NO thyroid problems, NO diabetes Pysch: NO mood, NO anxiety, NO depression Objective/Exam Narrative Physical exam: Vitals: General Appearance: Alert and Orientated x3, well-nourished female who is sitting on exam room. Prominent proximal inerphalgeal joints. Thorax/Lungs: Symmetrical with good expansion. Chest and back non-tender. Lungs resonant to percussion. Breath sounds vesicular without crackles, wheezes, or rhonchi Cardiovascular/Peripheral Vascular: No jugular venous distention noted. S1 and S2 heart sounds regular, no murmurs or extra heart sounds auscultated. No peripheral edema noted. Abdomen: Bowel sounds are active. No tenderness to deep or light palpation. Assessment & Plan Diagnosis / Problem List (1) Muscle spasm: Status: Acute Assessment & Plan: Patient is concerned for muscle spasm with rigidity and made worse with use, along with headache, and diaphoresis. Concern for poly-pharmacy with patient's behavioral health medicaiton vs myopathy vs hyper/hypothyroidism vs statin use but less likely as this does not sound as a statin probelm Plan: -RINA, TSH, Free T4, T3, CK -Neurology referral -Follow up with neurology. (2) Anxiety and depression: Status: Chronic Assessment & Plan: Patient takes several behavioral health medication given history of anxiety and depression, including apripiprzole, clonazepam, mirtazapine, and desipramine. Concern for Mirtazapine and Desipramine as both TCA. Patient follows [facility]. Patient referred to neurology. Patient would benefit from medication reconcilliation given several psychiatry medication. Patient advised to speak with [facility] given muscle spasms. Plan: -Neurology Referral (3) TIA (transient ischemic attack): Status: Resolved Assessment & Plan: Patient is a hospital follow up who was diagnosed with TIA. Continue aspirin and Atorvastatin Plan: Continue Atorvastatin and Aspirin (4) Hypothyroidism: Status: Acute Qualifiers: Hypothyroidism type: acquired Qualified Code(s): E03.9 - Hypothyroidism, unspecified Assessment & Plan: Continue liothyronin. Plan: Follow up with TSH, Free T4 and T3. Plan - The patient's plan was discussed with attending Dr. Marleny Brown MD PGY2 Internal Medicine Orders: Orders RINA IFA Screen w/refl, IFA* 01/13/25 M62.838 - Other muscle spasm Thyroid Stimulating Hormone 01/13/25.838 - Other muscle spasm Creatine Kinase 01/13/25.8 - Other muscle spasm Free T3 01/13/258 - Other muscle spasm Free T4 (Free Thyroxine) 01/13/25838 - Other muscle spasm Referrals Neurology 8 - Other muscle spasm Office Procedures [facility] Level of Care Nursing/Assessment Patient Status: Established Patient Nursing Assessment/Reassessment: Medication Reconciliation, Update PMH in EMR and Vital Signs Coordination of Care: Complex Care and Chronic Disease 1-5, Education Complex Pt/Fam, Consent,records obtained, informed consent and 4+ Authorizations needed Established Patient Charge Established Patient Point Assignment: 105 Established Patient Point Charge: Level 3 (80-115) TB Screening LTBI Screening: Has patient traveled, was born, or resided for at least 1 month, or frequent border crossing into a country with an elevated TB rate: No Immunosuppression, current or planned (HIV, organ transplant, treated with biologic agents, steroids, or other immunosuppression medication): No Close contact to someone with infectious TB disease during lifetime: No Homelessness or incarceration, current or past: No TB testing indicated at this time (at least 1 yes above): No
== END 2025-01-13 16:35 | disposition home or self-care (01) ==
LOC: HODAHC 15:02
PROVIDERS: Supervising Provider Internal Medicine; Visit Provider Student in an Organized Health Care Education/Training Program
DX: M62.838 Other muscle spasm (principal); F41.9 Anxiety disorder, unspecified; F32.A Depression, unspecified; Z86.73 Personal history of transient ischemic attack (TIA), and cerebral infarction without residual deficits; E03.9 Hypothyroidism, unspecified
CPT/HCPCS: 99213; G0463

== ENCOUNTER → 2025-01-13 | Outpatient (CLI) | payer BC, SELFPAY ==
[2025-01-13 17:57] LABS: Creatine Kinase 175 U/L (34-171); Free T3 4.0 pg/mL (2.3-4.2); Free T4 (Free Thyroxine) 0.96 ng/dL (0.89-1.76); Thyroid Stimulating Hormone 4.10 uIU/mL (0.55-4.78)
[2025-01-23 08:11] LABS: ANA Screen, IFA NEGATIVE (NEGATIVE)
== END | disposition home or self-care (01) ==
DX: M62.838 Other muscle spasm (principal)
CPT/HCPCS: 36415; 82550; 84439; 84443; 84481; 86038